=== PATIENT | male | born 1985 | race Caucasian/White ===

== ENCOUNTER 2016-09-09 09:10 | Emergency (ER) | payer MEDICAID ==
[~2016-09-09] VITALS: Ht 177.8 cm; Wt 81.6 kg
[2016-09-09 09:44] VITALS: BP 152/88
== END 2016-09-09 10:09 | disposition home or self-care (01) ==
LOC: ER 09:10
DX: S80.01XA Contusion of right knee, initial encounter (principal); F17.210 Nicotine dependence, cigarettes, uncomplicated; Z88.2 Allergy status to sulfonamides; W19.XXXA Unspecified fall, initial encounter; Y93.39 Activity, other involving climbing, rappelling and jumping off; Y99.8 Other external cause status; Y92.89 Other specified places as the place of occurrence of the external cause
CPT/HCPCS: 73562

== ENCOUNTER 2018-06-18 07:53 | Emergency (ER) | payer MEDICAID, OTHER ==
[~2018-06-18] VITALS: Ht 177.8 cm; Wt 78.0 kg
[2018-06-18 08:24] VITALS: BP 120/77
== END 2018-06-18 09:04 | disposition home or self-care (01) ==
LOC: ER 08:00
DX: K04.7 Periapical abscess without sinus (principal); K12.1 Other forms of stomatitis; F17.210 Nicotine dependence, cigarettes, uncomplicated; Z88.2 Allergy status to sulfonamides

== ENCOUNTER 2018-08-20 15:15 | Emergency (ER) | payer OTHER ==
[~2018-08-20] VITALS: Ht 177.8 cm; Wt 80.7 kg
[2018-08-20 15:21] VITALS: BP 168/104
== END 2018-08-20 18:54 | disposition left against medical advice (07) ==
LOC: ER 15:18
DX: M79.641 Pain in right hand (principal); Z53.21 Procedure and treatment not carried out due to patient leaving prior to being seen by health care provider
CPT/HCPCS: 73130

== ENCOUNTER 2018-08-23 12:00 | Emergency (ER) | payer OTHER ==
[~2018-08-23] VITALS: Ht 177.8 cm; Wt 80.7 kg
[2018-08-23 12:10] VITALS: BP 156/94
== END 2018-08-23 14:12 | disposition left against medical advice (07) ==
LOC: ER 12:00
DX: M79.644 Pain in right finger(s) (principal); Z53.21 Procedure and treatment not carried out due to patient leaving prior to being seen by health care provider

== ENCOUNTER 2018-09-03 09:14 | Emergency (ER) | payer OTHER ==
[~2018-09-03] VITALS: Ht 177.8 cm; Wt 79.4 kg
[2018-09-03 09:32] VITALS: BP 146/100
== END 2018-09-03 10:33 | disposition home or self-care (01) ==
LOC: ER 09:14
DX: S40.011A Contusion of right shoulder, initial encounter (principal); S09.90XA Unspecified injury of head, initial encounter; Z88.2 Allergy status to sulfonamides; W50.0XXA Accidental hit or strike by another person, initial encounter; Y93.89 Activity, other specified; Y99.8 Other external cause status; Y92.89 Other specified places as the place of occurrence of the external cause
CPT/HCPCS: 70450

== ENCOUNTER 2018-11-18 11:07 | Emergency (ER) | payer OTHER ==
[~2018-11-18] VITALS: Ht 177.8 cm; Wt 80.7 kg
[2018-11-18 11:23] VITALS: BP 134/85
[2018-11-18] MEDS ORDERED: TETRACAINE HCL 0.5% OPTH(EYE) SOLN 4ML LEFTEYE ONE (12:30)
[2018-11-18] MEDS ORDERED: FLUORESCEIN SOD 1 MG TEST STRIP LEFTEYE ONE (12:30)
== END 2018-11-18 13:06 | disposition home or self-care (01) ==
LOC: ER 11:07
DX: S05.02XA Injury of conjunctiva and corneal abrasion without foreign body, left eye, initial encounter (principal); F17.210 Nicotine dependence, cigarettes, uncomplicated; F12.90 Cannabis use, unspecified, uncomplicated; Z88.2 Allergy status to sulfonamides; Z90.49 Acquired absence of other specified parts of digestive tract; X58.XXXA Exposure to other specified factors, initial encounter; Y93.89 Activity, other specified; Y99.8 Other external cause status; Y92.89 Other specified places as the place of occurrence of the external cause

== ENCOUNTER 2020-02-17 07:39 | Emergency (ER) | payer OTHER ==
[~2020-02-17] VITALS: Ht 177.8 cm; Wt 80.7 kg
[2020-02-17] MEDS ORDERED: RISP1TAB63 PO (07:43)
[2020-02-17] MEDS ORDERED: SERT-274 PO (07:43)
[2020-02-17] MEDS ORDERED: TETANUS-DIPTH-ACEL PERTUSSIS 0.5ML SYR Tdap IM ONE (08:45)
[2020-02-17] MEDS ORDERED: cefTRIAXone SOD 1,000 MG VL IM ONE (08:45)
[2020-02-17] MEDS ORDERED: LIDOCAINE 1% HCL (LOCAL ANESTH.) INJ 20ML MDV IJ ONE (09:15)
[2020-02-17 09:40] VITALS: BP 144/88
== END 2020-02-17 09:46 | disposition home or self-care (01) ==
LOC: ER 07:39
DX: S81.812A Laceration without foreign body, left lower leg, initial encounter (principal); Z88.2 Allergy status to sulfonamides; W54.0XXA Bitten by dog, initial encounter; Y93.01 Activity, walking, marching and hiking; Y92.488 Other paved roadways as the place of occurrence of the external cause; Y99.8 Other external cause status
CPT/HCPCS: 12005; 73590; 90471; 90715; 96372; 99284; J0696; J2001

== ENCOUNTER 2022-03-07 13:19 | Emergency (ER) | payer MEDICAID, OTHER ==
[~2022-03-07] VITALS: Ht 177.8 cm; Wt 79.5 kg
[~2022-03-07 13:19] MED LIST: RISP1TAB63 PO; SERT50TA19 PO
[2022-03-07 15:00] VITALS: BP 110/76
[2022-03-07] MEDS ORDERED: BICT1TAB PO (15:02)
== END 2022-03-07 15:06 | disposition home or self-care (01) ==
LOC: ER 13:19
DX: Z76.0 Encounter for issue of repeat prescription (principal); Z21 Asymptomatic human immunodeficiency virus [HIV] infection status